=== PATIENT | male | born 1940 | race Caucasian/White ===

== ENCOUNTER 2016-10-26 10:14 | Inpatient (IN) | payer MEDICARE ==
[~2016-10-26] VITALS: Ht 182.9 cm; Wt 143.6 kg
[2016-10-26] VITALS (412 sets, daily range): BP systolic 124–144; BP diastolic 58–71; PULSE 62–81; TEMP 98.1–99.2; O2SAT 80–100
[~2016-10-26 10:14] MED LIST: FLECAINIDE ACET50 MG PO; FLOMAX0.4 MG PO; LANTUS100 U/ML SQ; LASIX10 MG/M1 PO; NOVOLOG FLEX100 U/ML SQ
[2016-10-26 10:40] LABS: ARTERIAL BLD GAS O2 SATURATION 94.4 % (92-100); ARTERIAL BLD GAS TCO2 CT 26.9; ARTERIAL BLOOD GAS BASE EXCESS 1.2 (-2-2); ARTERIAL BLOOD GAS HCO3 25.7 meq/L (22-26); ARTERIAL BLOOD GAS PHT 7.42 C (7.35-7.45); ARTERIAL BLOOD GAS pH 7.42 (7.35-7.45); OXYHEMOGLOBIN 93.3 %
[2016-10-26 10:41] LABS: ATS? YES
[2016-10-26 10:56] LABS: BASO % 0.1 % (0.0-2.0); EOS % 0.1 % (0-4.0); GRAN # 12.3 (1.4-6.5); GRAN % 87.3 % (42.2-75.2); HEMATOCRIT 40.7 % (42.0-52.0); HEMOGLOBIN 13.5 g/dl (13.5-18.0); LYMPH # 0.6 (1.2-3.4); MEAN CELL VOLUME 91 fl (80.0-100.0); MEAN CORPUSCULAR HEMOGLOBIN 30 pg (27.0-31.0); MEAN CORPUSCULAR HGB CONC 33 g/dl (33.0-37.0); MEAN PLATELET VOLUME 11.4 fl (7.4-10.4); MONO # 1.1 (0.1-0.6); MONO % 7.4 % (1.7-9.3); PLATELET COUNT 120 K/mm3 (130-400); RED BLOOD COUNT 4.47 M/mm3 (4.20-5.60); REDCELL DISTRIBUTION WIDTH-CV 13.2 % (11.5-14.5); WHITE BLOOD COUNT 14.1 K/mm3 (4.8-10.8)
[2016-10-26 11:19] LABS: ADJUSTED CALCIUM 9.1 mg/dL (8.4-10.2); ALBUMIN 3.5 gm/dL (3.5-5.0); CALCIUM 8.7 mg/dL (8.4-10.2); CREATININE, serum 1.31 mg/dL (0.66-1.25); POTASSIUM 4.4 mmol/L (3.4-5.0); TOTAL PROTEIN 7.7 gm/dL (6.4-8.2)
[2016-10-26] MEDS ORDERED: PROSCAR 5MG5 MG PO (11:40)
[2016-10-26] MEDS ORDERED: CARTIA XT120 MG PO (11:42)
[2016-10-26] MEDS ORDERED: PRINIVIL40 MG PO (11:43)
[2016-10-26] MEDS ORDERED: PULMICORT0.5 MG/2 M IH (11:48)
[2016-10-26] MEDS ORDERED: TAMBOCOR50 MG PO (12:04)
[2016-10-26] MEDS ORDERED: LASIX 40MG TABL40 MG PO ×2 (12:04→12:46)
[2016-10-26] MEDS ORDERED: FLOMAX 0.40.4 MG/CAP PO (12:04)
[2016-10-26 15:52] LABS: PH 5 (5-8); SQUAMOUS EPITHELIAL 0-2 /hpf; URINE APPEARANCE Clear; URINE BACTERIA None Seen /hpf; URINE BILIRUBIN Negative (NEGATIVE); URINE BLOOD 1+ (NEGATIVE); URINE COLOR Yellow; URINE GLUCOSE Negative (NEGATIVE); URINE KETONE Trace (NEGATIVE); URINE RBC 0-2 /hpf; URINE UROBILINOGEN Negative (NEGATIVE)
[2016-10-26 23:42] LABS: INFLUENZA B NEGATIVE
[2016-10-27] VITALS (667 sets, daily range): BP systolic 124–160; BP diastolic 62–91; PULSE 54–90; TEMP 97–98.7; O2SAT 80–100
[2016-10-27 06:23] LABS: CALCIUM 8.6 mg/dL (8.4-10.2); CREATININE, serum 0.98 mg/dL (0.66-1.25); POTASSIUM 4.6 mmol/L (3.4-5.0)
[2016-10-27 06:25] LABS: HEMATOCRIT 39.2 % (42.0-52.0); HEMOGLOBIN 12.6 g/dl (13.5-18.0); MEAN CELL VOLUME 92 fl (80.0-100.0); MEAN CORPUSCULAR HEMOGLOBIN 30 pg (27.0-31.0); MEAN CORPUSCULAR HGB CONC 32 g/dl (33.0-37.0); MEAN PLATELET VOLUME 11.6 fl (7.4-10.4); PLATELET COUNT 110 K/mm3 (130-400); RED BLOOD COUNT 4.27 M/mm3 (4.20-5.60); REDCELL DISTRIBUTION WIDTH-CV 13.4 % (11.5-14.5); WHITE BLOOD COUNT 8.5 K/mm3 (4.8-10.8)
[2016-10-27 06:56] LABS: ADD PATHOLOGY DIFF REVIEW NO
[2016-10-27 07:47] LABS: BAND 16 % (0-10); NEUTROPHILS 81 % (42.0-75.2); TOTAL CELLS COUNTED 100
[2016-10-28] VITALS (7 sets, daily range): BP systolic 137–155; BP diastolic 37–88; PULSE 38–78; TEMP 97.3–98.7
[2016-10-29 04:39] VITALS: BP 149/48; PULSE 80; TEMP 97.7
[2016-10-29 07:14] LABS: BASO % 0.1 % (0.0-2.0); GRAN # 7.7 (1.4-6.5); GRAN % 88.7 % (42.2-75.2); HEMATOCRIT 38.4 % (42.0-52.0); HEMOGLOBIN 12.3 g/dl (13.5-18.0); LYMPH # 0.7 (1.2-3.4); LYMPH % 7.7 % (20.0-51.0); MEAN CELL VOLUME 92 fl (80.0-100.0); MEAN CORPUSCULAR HEMOGLOBIN 30 pg (27.0-31.0); MEAN CORPUSCULAR HGB CONC 32 g/dl (33.0-37.0); MEAN PLATELET VOLUME 11.8 fl (7.4-10.4); MONO # 0.2 (0.1-0.6); MONO % 2.8 % (1.7-9.3); PLATELET COUNT 144 K/mm3 (130-400); RED BLOOD COUNT 4.16 M/mm3 (4.20-5.60); REDCELL DISTRIBUTION WIDTH-CV 13.3 % (11.5-14.5); WHITE BLOOD COUNT 8.7 K/mm3 (4.8-10.8)
[2016-10-29 07:19] LABS: CREATININE, serum 0.98 mg/dL (0.66-1.25); POTASSIUM 4.2 mmol/L (3.4-5.0)
[2016-10-29 08:12] VITALS: BP 151/64; PULSE 47; TEMP 96.6
[2016-10-29 11:55] VITALS: BP 137/50; PULSE 70; TEMP 97.9
[2016-10-29 17:12] VITALS: BP 150/52; PULSE 78; TEMP 97.7
[2016-10-29 20:08] VITALS: BP 148/66; PULSE 78; TEMP 97.8
[2016-10-29 23:23] VITALS: BP 153/68; PULSE 52; TEMP 97.6
[2016-10-30 04:55] VITALS: BP 161/82; PULSE 65; TEMP 97.4
[2016-10-30 08:21] VITALS: BP 146/77; PULSE 69
[2016-10-30] MEDS ORDERED: PULMICORT R1 MG/2 ML IH (11:01)
[2016-10-30] MEDS ORDERED: OMNICEF 300MG300 MG PO (11:03)
[2016-10-30] MEDS ORDERED: LASIX 20MG TABL20 MG PO (11:03)
[2016-10-30] MEDS ORDERED: PROAIR HFA0.09 MG/AC IH (11:04)
[2016-10-30] MEDS ORDERED: PREDNISONE20 MG PO (11:04)
[2016-10-30 11:43] VITALS: BP 156/71; PULSE 67; TEMP 97.5
== END 2016-10-30 13:40 | disposition home health service (06) | DRG 190 ==
LOC: COL.ER 10:14 → IMCU 11:34 → MEDICAL 10-27 19:03
PROVIDERS: Family Medicine; Nurse Practitioner Family
DX: J44.0 Chronic obstructive pulmonary disease with (acute) lower respiratory infection (principal); J18.9 Pneumonia, unspecified organism; Z68.41 Body mass index [BMI] 40.0-44.9, adult; E66.2 Morbid (severe) obesity with alveolar hypoventilation; J96.11 Chronic respiratory failure with hypoxia; I12.9 Hypertensive chronic kidney disease with stage 1 through stage 4 chronic kidney disease, or unspecified chronic kidney disease; E11.22 Type 2 diabetes mellitus with diabetic chronic kidney disease; N18.3 Chronic kidney disease, stage 3 (moderate); Z79.4 Long term (current) use of insulin; E11.42 Type 2 diabetes mellitus with diabetic polyneuropathy; F03.90 Unspecified dementia, unspecified severity, without behavioral disturbance, psychotic disturbance, mood disturbance, and anxiety; E11.319 Type 2 diabetes mellitus with unspecified diabetic retinopathy without macular edema; Z87.891 Personal history of nicotine dependence; E11.65 Type 2 diabetes mellitus with hyperglycemia; I48.0 Paroxysmal atrial fibrillation
CPT/HCPCS: 99223-AI; 99232-AI; 99233-AI; 99239; J0456; J0696; J1650; J1815; J2930; J7030; J7050; J7512

== ENCOUNTER 2018-02-15 16:30 | Inpatient (IN) | payer MEDICARE ==
[~2018-02-15] VITALS: Ht 182.9 cm; Wt 131.5 kg
[~2018-02-15 16:30] MED LIST changes: +CARTIA XT120 MG PO; +FLOMAX 0.40.4 MG/CAP PO; +LASIX 20MG TABL20 MG PO; +LASIX 40MG TABL40 MG PO; +OMNICEF 300MG300 MG PO; +PREDNISONE20 MG PO; +PRINIVIL40 MG PO; +PROAIR HFA0.09 MG/AC IH; +PROSCAR 5MG5 MG PO; +PULMICORT R1 MG/2 ML IH; +PULMICORT0.5 MG/2 M IH; +TAMBOCOR50 MG PO
[2018-02-15 18:17] VITALS: BP 123/63; PULSE 58; TEMP 98.4
[2018-02-15 19:52] VITALS: BP 125/54; PULSE 56; TEMP 98.1
[2018-02-16] VITALS (7 sets, daily range): BP systolic 117–144; BP diastolic 46–70; PULSE 51–78; TEMP 97.3–98.7
[2018-02-17 02:48] VITALS: BP 133/53; PULSE 57; TEMP 98.2
[2018-02-17 07:40] VITALS: BP 130/63; PULSE 69; TEMP 98.1
[2018-02-17 11:47] VITALS: BP 111/57; PULSE 72; TEMP 97.4
[2018-02-17 16:30] VITALS: BP 122/60; PULSE 72; TEMP 97.2
[2018-02-17 20:28] VITALS: BP 131/61; PULSE 85; TEMP 98.6
[2018-02-17 23:23] VITALS: BP 137/77; PULSE 75; TEMP 98.6
[2018-02-18 04:02] VITALS: BP 128/80; PULSE 71; TEMP 98.6
[2018-02-18 08:26] VITALS: BP 150/76; PULSE 97; TEMP 98.2
[2018-02-18] MEDS ORDERED: NYAMYC100000 U/G TP (12:12)
[2018-02-18 12:59] VITALS: BP 151/85; PULSE 86; TEMP 97.6
== END 2018-02-18 15:01 | disposition home health service (06) | DRG 552 ==
LOC: MEDICAL 16:30
DX: M51.16 Intervertebral disc disorders with radiculopathy, lumbar region (principal); E66.2 Morbid (severe) obesity with alveolar hypoventilation; Z68.39 Body mass index [BMI] 39.0-39.9, adult; J44.9 Chronic obstructive pulmonary disease, unspecified; I12.9 Hypertensive chronic kidney disease with stage 1 through stage 4 chronic kidney disease, or unspecified chronic kidney disease; E11.22 Type 2 diabetes mellitus with diabetic chronic kidney disease; N18.3 Chronic kidney disease, stage 3 (moderate); Z79.4 Long term (current) use of insulin; F03.90 Unspecified dementia, unspecified severity, without behavioral disturbance, psychotic disturbance, mood disturbance, and anxiety; E11.42 Type 2 diabetes mellitus with diabetic polyneuropathy; E11.319 Type 2 diabetes mellitus with unspecified diabetic retinopathy without macular edema; Z87.891 Personal history of nicotine dependence
CPT/HCPCS: 99222-AI; 99232-AI; 99239; J1644; J1815